=== PATIENT | male | born 1965 | race Two or more races ===

== ENCOUNTER 2017-01-18 00:15 | Emergency (ER) | payer SELFPAY ==
[~2017-01-18] VITALS: Ht 162.6 cm; Wt 72.6 kg
[2017-01-18] MEDS ORDERED: UNOBMED (00:27)
--- NOTE | 2017-01-18 00:43 | Emergency Room Report ---
History of Present Illness General Chief Complaint: Alcohol Intoxication Source: Patient Present Illness HPI 41YOM BIBEMS after found walking in traffic, obviously intoxicated Patient states he was "trying to cross the street." Denies other drugs Only drank a "lot of alcohol." Denies any pain, "just wants to sleep." Allergies: Coded Allergies: No Known Allergies (Unverified , 01/18/17) Patient History Past Medical History: none Past Surgical History: none Pertinent Family History: none Social History: Reports: alcohol use Immunizations: UTD Reviewed Nursing Documentation: PMH: Agreed, PSxH: Agreed Nursing Documentation-PMH Past Medical History: No Stated History Review of Systems All Other Systems: negative except mentioned in HPI Physical Exam Vital Signs Date Time Temp Pulse Resp B/P Pulse Ox O2 Delivery O2 Flow Rate FiO2 01/18/17 00:21 100 16 120/66 98 Room Air Sp02 EP Interpretation: reviewed, normal General Appearance: normal inspection, well appearing, no apparent distress, alert, GCS 15, non-toxic, other - disheveled, +AOB Head: normocephalic, atraumatic Eyes: bilateral eye EOMI, bilateral eye PERRL ENT: normal ENT inspection, hearing grossly normal, normal voice Neck: normal inspection, full range of motion, supple, no bony tend Respiratory: normal inspection, lungs clear, normal breath sounds, no respiratory distress, no retraction, no wheezing Cardiovascular #1: regular rate, rhythm, no edema Gastrointestinal: normal inspection, normal bowel sounds, non tender, soft, no guarding, no hernia Genitourinary: no CVA tenderness Musculoskeletal: normal inspection, back normal, normal range of motion, Markus' s Sign negative Neurologic: normal inspection, alert, oriented x3, responsive, yarder operator III-XII nml as tested, motor strength/tone normal, speech normal Psychiatric: normal inspection, judgement/insight normal, mood/affect normal Skin: normal inspection, normal color, no rash Lymphatic: normal inspection Medical Decision Making Diagnostic Impression: Primary Impression: Acute alcoholic intoxication Qualified Codes: F10.929 - Alcohol use, unspecified with intoxication, unspecified ER Course Acute ETOH intoxication VSS. Afebrile. No obvious signs of acute trauma on exam patient is not intox to the point of coma - able to converse, interact ?malingering for detention Observed in ED until clinically sober Tolerating PO Ambulating with steady gait Last Vital Signs Date Time Temp Pulse Resp B/P Pulse Ox O2 Delivery O2 Flow Rate FiO2 01/18/17 00:21 100 16 120/66 98 Room Air Status: improved Disposition: HOME, SELF-CARE TAMMY KEEN M.D. Jan 18, 2017 00:43
[2017-01-18 01:54] VITALS: BP 115/71
[2017-01-18 03:16] VITALS: BP 110/54
[2017-01-18 06:45] VITALS: BP 110/54
== END 2017-01-18 06:45 | disposition home or self-care (01) ==
LOC: EDBD → EDUNIT# 00:15 → EMR 00:41
DX: F10.929 Alcohol use, unspecified with intoxication, unspecified (principal)
CPT/HCPCS: 99284

== ENCOUNTER 2017-01-18 21:54 | Emergency (ER) | payer SELFPAY ==
[~2017-01-18] VITALS: Ht 167.6 cm; Wt 79.4 kg
[~2017-01-18 21:54] MED LIST: UNOBMED
[2017-01-18 22:06] VITALS: BP 106/72
[2017-01-18 23:28] VITALS: BP 105/70
--- NOTE | 2017-01-18 23:43 | Emergency Room Report ---
History of Present Illness General Chief Complaint: Alcohol Intoxication Source: Patient Present Illness HPI 51YOM BIBEMS again for ETOH intoxication. Was released 1 hour prior to my start of shift after observation in ED for same. Was also here overnight last night. Unknown if patient went out and drank again after DC 1 hour prior Found on corner of [facility] for this ED visit As noted in last night's note, patient has multiple areas of subacute and chronic trauma to head, scalp, face and extremities He does not know when he fell last. Not sure about any acute trauma Denies vision loss/change, neck pain, nausea/vomiting, chest pain, SOB, abd pain Patient ambulated into ED on this visit Was placed in chair and patient covered face/head with sheet Repeatedly asking for stretcher to sleep in Was observed getting out of chair and hitting back of head on wall in ED Allergies: Coded Allergies: No Known Allergies (Unverified , 01/18/17) Patient History Past Medical History: none Past Surgical History: none Pertinent Family History: none Social History: Reports: alcohol use Immunizations: UTD Reviewed Nursing Documentation: PMH: Agreed, PSxH: Agreed Nursing Documentation-PMH Past Medical History: No Stated History Review of Systems All Other Systems: negative except mentioned in HPI Physical Exam Vital Signs Date Time Temp Pulse Resp B/P Pulse Ox O2 Delivery O2 Flow Rate FiO2 01/18/17 21:51 97.9 97 16 106/72 99 Room Air Sp02 EP Interpretation: reviewed, normal General Appearance: normal inspection, well appearing, no apparent distress, alert, GCS 15, non-toxic, other - Disheveled Head: normocephalic, other - Multiple areas of tender chronic hematomas to right front scalp, right parietal/occiput Eyes: bilateral eye EOMI, bilateral eye PERRL ENT: normal ENT inspection, hearing grossly normal, normal voice Neck: normal inspection, full range of motion, supple, no bony tend Respiratory: normal inspection, lungs clear, normal breath sounds, no respiratory distress, no retraction, no wheezing Cardiovascular #1: regular rate, rhythm, no edema Gastrointestinal: normal inspection, normal bowel sounds, non tender, soft, no guarding, no hernia Genitourinary: no CVA tenderness Musculoskeletal: normal inspection, back normal, normal range of motion, Markus' s Sign negative Neurologic: normal inspection, alert, oriented x3, responsive, spot sprayer III-XII nml as tested, motor strength/tone normal, speech normal Psychiatric: normal inspection, judgement/insight normal, mood/affect normal Skin: normal inspection, normal color, no rash Lymphatic: normal inspection Medical Decision Making Diagnostic Impression: Primary Impression: Acute alcoholic intoxication Qualified Codes: F10.929 - Alcohol use, unspecified with intoxication, unspecified Additional Impressions: Head trauma Qualified Codes: S09.90XA - Unspecified injury of head, initial encounter Traumatic hematoma of head Qualified Codes: S00.93XA - Contusion of unspecified part of head, initial encounter ER Course CT head shows subdural vs epidural 4mm right frontal hematoma No midline shift VSS. Afebrile. GCS 15 ?acute or chronic hematoma given multiple areas of trauma, subacute and chronic to head Accepted for transfer by Trauma Surg Dr Saldana at [facility] at 1am I also endorsed patient to neurosurg ready mix truck driver for Neuro ICU transfer Labs pending at time of endorsement to [facility] Last Vital Signs Date Time Temp Pulse Resp B/P Pulse Ox O2 Delivery O2 Flow Rate FiO2 01/18/17 22:06 97.9 97 16 106/72 99 Room Air Status: improved Disposition: ADMITTED INPATIENT Condition: Critical TAMMY KEEN M.D. Jan 18, 2017 23:43
[2017-01-19 01:15] VITALS: BP 144/68
[2017-01-19 02:20] LABS: EOSINOPHILS % (AUTO) 2.5 % (0.0-3.0); LYMPHOCYTES % (AUTO) 28.5 % (20.0-45.0); MEAN CORPUSCULAR HEMOGLOBIN 20.2 PG (27.0-31.0); MEAN CORPUSCULAR HGB CONC 29.9 G/DL (32.0-36.0); MEAN CORPUSCULAR VOLUME 68 FL (80-99); MEAN PLATELET VOLUME 6.9 FL (6.5-10.1); MONOCYTES % (AUTO) 5.4 % (1.0-10.0); NEUTROPHILS % (AUTO) 62.7 % (45.0-75.0); PLATELET COUNT 294 K/UL (150-450); RED BLOOD COUNT 4.87 M/UL (4.70-6.10); RED CELL DISTRIBUTION WIDTH 19.6 % (11.6-14.8); WHITE BLOOD COUNT 9.5 K/UL (4.8-10.8)
[2017-01-19 02:36] LABS: ALANINE AMINOTRANSFERASE 11 U/L (3-41); ALBUMIN/GLOBULIN RATIO 0.9 (1.0-2.7); ANION GAP 19 (5-15); ASPARTATE AMINO TRANSFERASE 20 U/L (5-40); CALCIUM 9.1 mg/dL (8.6-10.2); CARBON DIOXIDE 24 mEQ/L (20-30); CHLORIDE 95 mEQ/L (98-107); CREATININE 0.6 mg/dL (0.7-1.2); GLOMERULAR FILTRATION RATE > 60 mL/min (>60); HEMOLYSIS 25; POTASSIUM 2.9 mEQ/L (3.4-4.9); SODIUM 138 mEQ/L (135-145); TOTAL PROTEIN 7.3 g/dL (6.6-8.7)
[2017-01-19 02:48] VITALS: BP 144/62
--- NOTE | 2017-01-19 10:07 | Diagnostic Imaging Report ---
Indication: PAIN altered mental status Technique: spiral acquisitions obtained through the brain. Angled axial and coronal 5 x 5 mm slices were reconstructed. No IV contrast utilized. Radiation dose was minimized using automated exposure control Total dose length product 1523 mGycm. CTDIvol(s) 70 mGy Comparison: FINDINGS: There is a 4 mm thick by 15 mm wide extra-axial hematoma in the right frontal region. This does not result in any significant mass effect. There is considerable high parietal scalp soft tissue swelling, which crosses the midline of the vertex. No underlying calvarial injury. There is diffuse bony hyperostosis. There is age-related enlargement of the ventricles and extra axial CSF spaces. There is periventricular deep white matter ischemic change. Normal hernandez-white differentiation. Visualized orbits are unremarkable. Visualized sinuses are unremarkable. Intact calvarium. IMPRESSION: Small extra-axial frontal hematoma, subdural versus epidural, not resulting in any significant mass effect. Cerebral volume loss, advanced for age Evidence of right parietal scalp soft tissue injury. This agrees with the preliminary interpretation provided overnight by [facility] teleradiology service. The CT scanner at [facility] is accredited by the [employer] and the scans are performed using protocols designed to limit radiation exposure to as low as reasonably achievable to attain images of sufficient resolution adequate for diagnostic evaluation
--- NOTE | 2017-01-19 11:13 | Diagnostic Imaging Report ---
Indication: Chest pain Technique: One view of the chest Comparison: none Findings: There is retrocardiac opacification. There is bilateral perihilar bronchial wall thickening. Bilateral pleural spaces are clear.. The heart size is normal. Impression: Suspect retrocardiac infiltrate Bilateral bronchial wall thickening, could represent acute or chronic bronchitis changes
== END 2017-01-19 02:55 | disposition short-term general hospital (02) ==
LOC: ENRESERVTM → ENRESERVDT → EDBD 21:54 → EMR 22:11
DX: F10.129 Alcohol abuse with intoxication, unspecified (principal); S00.03XA Contusion of scalp, initial encounter; X58.XXXA Exposure to other specified factors, initial encounter; Y92.414 Local residential or business street as the place of occurrence of the external cause
CPT/HCPCS: 36415; 70450; 71010; 80053; 85025; 93005; 99284